=== PATIENT | female | born 1970 | race African-American/Black ===

== ENCOUNTER 2016-06-20 08:45 | Emergency (ER) | payer OTHER ==
[2016-06-20 08:50] VITALS: BMI 28.3
[2016-06-20] MEDS ORDERED: ASPIRIN 81 MG CHEWABLE TABLETS PO ONE (09:43)
--- NOTE | 2016-06-20 09:43 | PDOC ---
*Physical Exam - Vital Signs Last Vital Signs Temp Pulse Resp BP Pulse Ox 98 F 66 18 108/72 98 06/20/16 08:46 06/20/16 09:40 06/20/16 09:40 06/20/16 09:40 06/20/16 09:40 - Physical Exam Comments: 06/20/16 09:43 Pt seen by the Advanced Practice Provider under my direct supervision Pt interviewed and examined Ancillary studies reviewed I agree with plan as outlined by the Advanced Practice Provider ED Treatment Course - LABORATORY CBC & Chemistry Diagram: 06/20/16 10:12 06/20/16 10:12 *DC/Admit/Observation/Transfer Diagnosis at time of Disposition: Chest pain, Shoulder pain, bilateral - Discharge Dispostion Disposition: HOME Condition at time of disposition: Improved - Referrals Referrals: Nahum Johnson MD [Primary Care Provider] - - Patient Instructions Printed Discharge Instructions: DI for Chest Pain, DI for Musculoskeletal Pain Additional Instructions: Take Motrin or Tylenol for discomfort and follow-up with your PCP as needed. If your symptoms return or worsen you may return to the ED at any given time.
[2016-06-20] MEDS ORDERED: morphine CARPU-JECT 2 MG/1 ML DISP.SYRIN IVPUSH ONE ×2 (09:46→13:30)
[2016-06-20] MEDS ORDERED: morphine CARPU-JECT 2 MG/1 ML DISP.SYRIN ONE ×2 (09:52→13:37)
[2016-06-20] MEDS ORDERED: ASPIRIN 81 MG CHEWABLE TABLETS ONE (09:52)
--- NOTE | 2016-06-20 09:56 | PDOC ---
History of Present Illness - General Chief Complaint: Pain Stated Complaint: CHEST PAIN Time Seen by Provider: 06/20/16 09:23 History Source: Patient Exam Limitations: No Limitations - History of Present Illness Initial Comments: 06/20/16 09:37 46-year-old female presents to the ED with worsening midsternal chest pressure which she states began about 1 week ago and now radiates to bilateral shoulders , left neck and left arm. Patient states took Motrin twice over the past 2 days which seemed to alleviate her discomfort so took it again this morning with no relief and decided come to the ER. Patient also states mild shortness of breath with minimal exertion but denies any history of PE, CHF, cough, or fever. Patient does state smokes cigarette a daily basis but denies history of DVT, recent travel or recent surgery. Patient does state history of recreational marijuana use and ex Cocaine user 5 years ago. Patient denies abdominal pain, lower extremity edema, orthopnea, palpitations, nausea, or mid back pain. Presenting Symptoms: Chest Pain, Short of Breath Timing/Duration: reports: constant, getting worse Severity/Quality: reports: moderate, pressure, tightness Location: reports: substernal, central Chest Pain Radiation: reports: arms (left), neck, shoulders Prior Chest Pain/Cardiac Workup: reports: No prior chest pain Nitro Today/Relief: Yes: no nitro taken today Aspirin Received prior to arrival (Core Measure): Yes: no aspirin today, 81 mg x 2 (given in the ED) Associated Symptoms: Yes: Chest Pain/pressure, Shortness of Breath Past History - Past Medical History Allergies/Adverse Reactions: Allergies Allergy/AdvReac Type Severity Reaction Status Date / Time No Known Allergies Allergy Verified 08/16/14 15:55 Home Medications: Ambulatory Orders No Home Medications 0 dose .ROUTE UTDICT 12/02/13 Psychiatric Problems: Yes (ANXIETY) Other medical history: DENIES - Immunization History Immunization Up to Date: Yes - Psycho/Social/Smoking Cessation Hx Anxiety: Yes Suicidal Ideation: No Smoking History: Current every day smoker Have you smoked in the past 12 months: No Number of Cigarettes Smoked Daily: 10 Information on smoking cessation initiated: No Hx Alcohol Use: No Drug/Substance Use Hx: Yes Substance Use Type: Alcohol, Cocaine (5 years ago), Marijuana Patient Lives Alone: No Lives with/in: spouse/SO Review of Systems - Review of Systems Able to Perform ROS?: Yes Constitutional: No: Symptoms Reported HEENTM: No: Symptoms Reported Respiratory: Yes: Shortness of Breath Cardiac (ROS): Yes: Chest Pain, Chest Tightness ABD/GI: No: Symptoms Reported : No: Symptoms Reported Musculoskeletal: No: Symptoms Reported Integumentary: No: Symptoms Reported Neurological: No: Symptoms reported Psychiatric: Yes: Anxiety (as per history but denied when questioned about psychiatric disorders) Hematologic/Lymphatic: No: Symptoms Reported *Physical Exam - Vital Signs Last Vital Signs Temp Pulse Resp BP Pulse Ox 98.4 F 66 18 95/78 98 06/20/16 14:29 06/20/16 14:29 06/20/16 14:29 06/20/16 14:29 06/20/16 14:29 - Physical Exam General Appearance: Yes: Nourished, Appropriately Dressed. No: Apparent Distress HEENT: positive: EOMI, JACKIE. negative: Pale Conjunctivae Neck: positive: Supple Respiratory/Chest: positive: Lungs Clear, Normal Breath Sounds. negative: Respiratory Distress, Accessory Muscle Use Cardiovascular: positive: Regular Rhythm, Regular Rate. negative: Murmur Gastrointestinal/Abdominal: positive: Soft, Tenderness (mild epigastric) Extremity: positive: Normal Capillary Refill. negative: Pedal Edema Integumentary: positive: Normal Color, Warm, Moist Neurologic: positive: Motor Strength 5/5. negative: Normal Mood/Affect (mildly anxious ) Heart Score/ECG Review #2 ECG reviewed & interpreted by me at: 15:08 General ECG Interpretation: Sinus Rhythm (rate 57. No acute changes.) - ECG Intrepretation Rhythm: Regular Rhythm (rate 66. no acute findngs. No ST elevation. unchanged from August 2014) ED Treatment Course - LABORATORY CBC & Chemistry Diagram: 06/20/16 10:12 06/20/16 10:12 - ADDITIONAL ORDERS Additional order review: Laboratory Results 06/20/16 06/20/16 06/20/16 14:00 10:12 10:12 INR D-Dimer Sodium Potassium Chloride Carbon Dioxide Anion Gap BUN Creatinine Creat Clearance w eGFR Random Glucose Calcium Magnesium Total Bilirubin AST ALT Alkaline Phosphatase Creatine Kinase 88 Troponin I < 0.02 B-Natriuretic Peptide Cancelled Total Protein Albumin Serum , Qual Negative 06/20/16 06/20/16 06/20/16 10:12 10:12 10:12 INR 0.93 D-Dimer 215 Sodium 141 Potassium 3.9 Chloride 109 H Carbon Dioxide 25 Anion Gap 7 L BUN 9 Creatinine 0.6 Creat Clearance w eGFR > 60 Random Glucose 79 Calcium 8.4 L Magnesium 2.4 Total Bilirubin 0.5 D AST 15 D ALT 33 D Alkaline Phosphatase 72 Creatine Kinase 94 Troponin I < 0.02 B-Natriuretic Peptide 69.65 Total Protein 7.1 Albumin 3.5 Serum , Qual 06/20/16 10:12 RBC 4.34 MCV 93.1 MCHC 34.2 RDW 13.6 MPV 9.1 D Neutrophils % 48.5 Lymphocytes % 39.8 Monocytes % 10.3 H Eosinophils % 1.0 Basophils % 0.4 - RADIOLOGY Radiology Studies Ordered: Category Date Time Status CHEST X-RAY PORTABLE* [RAD] Stat Radiology 06/20/16 11:31 Completed - Medications Given in the ED: ED Medications Discontinued Medications Generic Name Dose Route Start Last Admin Trade Name Freq PRN Reason Stop Dose Admin Aspirin 162 mg 06/20/16 09:43 06/20/16 10:05 Asa - PO 06/20/16 09:44 162 mg ONCE ONE Administration Sodium Chloride 1,000 mls @ 1,000 mls/hr 06/20/16 10:01 06/20/16 10:06 Normal Saline - IV 06/20/16 11:00 1,000 mls/hr ASDIR STA Administration Morphine Sulfate 2 mg 06/20/16 09:46 06/20/16 10:06 Morphine Injection - IVPUSH 06/20/16 09:47 2 mg ONCE ONE Administration Morphine Sulfate 2 mg 06/20/16 13:30 06/20/16 13:40 Morphine Injection - IVPUSH 06/20/16 13:31 2 mg ONCE ONE Administration Medical Decision Making - Medical Decision Making 06/20/16 10:03 Patient with substernal chest tightness that radiates to her shoulders and neck. Patient also complaining of shortness of breath for the past week. Patient states pain is worsened with movement but the shortness of breath continues. Patient with history of cocaine use 5 years ago and smokes presently. Patient does also have history of anxiety. Patient concerned for ACS, PE, dissection, anxiety, and pneumonia. Patient will be ordered for cardiac workup including d-dimer, BNP. Will consider imaging once d-dimer is resulted. Blood pressure on bilateral arms with noted pulse pressure difference. Patient ordered for IVF. 06/20/16 12:06 Laboratory Tests 06/20/16 06/20/16 06/20/16 10:12 10:12 10:12 WBC 4.3 D Hgb 13.8 Hct 40.4 Plt Count 216 Lymphocytes % 39.8 INR 0.93 D-Dimer Sodium 141 Potassium 3.9 Chloride 109 H Carbon Dioxide 25 Anion Gap 7 L BUN 9 Creatinine 0.6 Random Glucose 79 Calcium 8.4 L Magnesium 2.4 AST 15 D ALT 33 D Creatine Kinase 94 Troponin I < 0.02 B-Natriuretic Peptide 69.65 Serum , Qual 06/20/16 06/20/16 06/20/16 10:12 10:12 14:00 WBC Hgb Hct Plt Count Lymphocytes % INR D-Dimer 215 Sodium Potassium Chloride Carbon Dioxide Anion Gap BUN Creatinine Random Glucose Calcium Magnesium AST ALT Creatine Kinase 88 Troponin I < 0.02 B-Natriuretic Peptide Serum , Qual Negative States pain has been resolved with the morphine. Patient understands she will have a second troponin done at 2. Patient otherwise comfortable 06/20/16 15:08 Laboratory Tests 06/20/16 14:00 Creatine Kinase 88 Troponin I < 0.02 patient was given a second dose of morphine secondary to right shoulder pain. Vital signs stable. Second EKG negative. Patient will be discharged home to follow-up with her PCP 06/20/16 15:18 *DC/Admit/Observation/Transfer Diagnosis at time of Disposition: Bilateral shoulder pain Chest pain Qualifiers: Chest pain type: unspecified Qualified Code(s): R07.9 - Chest pain, unspecified - Discharge Dispostion Disposition: HOME Condition at time of disposition: Improved - Referrals Referrals: Nahum Johnson MD [Primary Care Provider] - - Patient Instructions Printed Discharge Instructions: DI for Chest Pain, DI for Musculoskeletal Pain Additional Instructions: Take Motrin or Tylenol for discomfort and follow-up with your PCP as needed. If your symptoms return or worsen you may return to the ED at any given time.
[2016-06-20] MEDS ORDERED: SODIUM CHLORIDE 1,000 ML IV STA (10:01)
[2016-06-20 10:32] LABS: BASOPHIL 0.4 % (0-2.0); MCH 31.8 pg (25.7-33.7); MCHC 34.2 g/dl (32.0-36.0); MEAN CELL VOLUME 93.1 fl (80-96); MEAN PLT VOLUME 9.1 fl (7.5-11.1); NEUTROPHILS 48.5 % (42.8-82.8); PLATELET COUNT 216 K/MM3 (134-434); RDW 13.6 % (11.6-15.6); WHITE BLOOD COUNT 4.3 K/mm3 (4.0-10.0)
[2016-06-20 10:53] LABS: INR 0.93 (0.82-1.09); PROTHROMBIN TIME (PATIENT) 10.2 SEC (9.98-11.88)
[2016-06-20 10:54] LABS: ALBUMIN 3.5 g/dl (3.4-5.0); ANION GAP 7 (8-16); BILIRUBIN,TOTAL 0.5 mg/dL (0.2-1.0); CALCIUM 8.4 mg/dL (8.5-10.1); CO2 25 mmol/L (21-32); CREATININE 0.6 mg/dL (0.55-1.02); GLUCOSE,RANDOM 79 mg/dL (74-106); MAGNESIUM 2.4 mg/dL (1.8-2.4); SGOT/AST 15 U/L (15-37); SGPT/ALT 33 U/L (12-78); TOT PROT 7.1 g/dl (6.4-8.2)
[2016-06-20 10:57] LABS: ALK PHOS 72 U/L (45-117); TROPONIN I < 0.02 ng/ml (0.00-0.05)
--- NOTE | 2016-06-20 12:26 | EKG ---
Test Reason : Blood Pressure : / mmHG Vent. Rate : 066 BPM Atrial Rate : 066 BPM P-R Int : 164 ms QRS Dur : 076 ms QT Int : 412 ms P-R-T Axes : 065 032 020 degrees QTc Int : 431 ms NORMAL SINUS RHYTHM CANNOT RULE OUT ANTERIOR INFARCT , AGE UNDETERMINED ABNORMAL ECG WHEN COMPARED WITH ECG OF 16-AUG-2014 16:42, NO SIGNIFICANT CHANGE WAS FOUND Confirmed by SONIDO CARRASCO MD ([id number]) on 06/20/2016 12:26:01 PM Referred By: Confirmed By:SONIDO CARRASCO MD
[2016-06-20 14:30] VITALS: TEMP 98.4
[2016-06-20 14:49] LABS: TROPONIN I < 0.02 ng/ml (0.00-0.05)
[2016-06-20 15:23] VITALS: BP 102/68; PULSE 64
--- NOTE | 2016-06-21 12:46 | EKG ---
Test Reason : Blood Pressure : / mmHG Vent. Rate : 057 BPM Atrial Rate : 057 BPM P-R Int : 186 ms QRS Dur : 074 ms QT Int : 424 ms P-R-T Axes : 061 035 023 degrees QTc Int : 412 ms SINUS BRADYCARDIA CANNOT RULE OUT ANTERIOR INFARCT (CITED ON OR BEFORE 20-JUN-2016) NONSPECIFIC ST ABNORMALITY Confirmed by YOSELIN MARTINEZ MD ([id number]) on 06/21/2016 12:45:50 PM Referred By: Confirmed By:YOSELIN MARTINEZ MD
== END 2016-06-20 15:29 | disposition home or self-care (01) ==
LOC: JER 08:45
PROC: 3E0337Z Introduction of Electrolytic and Water Balance Substance into Peripheral Vein, Percutaneous Approach (ICD-10-PCS; principal; 2016-06-20)
PROC: 3E033NZ Introduction of Analgesics, Hypnotics, Sedatives into Peripheral Vein, Percutaneous Approach (ICD-10-PCS; 2016-06-20)
DX: R07.9 Chest pain, unspecified (principal)
CPT/HCPCS: 36415; 71010-TC; 80053; 82550; 83735; 83880; 84484; 84703; 85025; 85379; 85610; 93005; 93010; 99284-25

== ENCOUNTER 2016-08-05 12:26 | Emergency (ER) | payer OTHER ==
[2016-08-05 12:36] VITALS: BP 116/77; PULSE 61; TEMP 98.3; BMI 28.1
--- NOTE | 2016-08-05 13:27 | PDOC ---
History of Present Illness - General Chief Complaint: Abscess Boil Stated Complaint: LUMP ON BACK Time Seen by Provider: 08/05/16 13:04 History Source: Patient Exam Limitations: No Limitations - History of Present Illness Initial Comments: 08/05/16 13:33 CHIEF COMPLAINT: Lump left sided back HISTORY OF PRESENT ILLNESS: Patient is a 46-year-old female with a history of anxiety here today planing of a lump to the left side of her mid back getting larger over the last month. Patient reports that area is nontender. Patient denies any fever or any redness of area. Patient denies any other symptoms. Timing/Duration: getting worse Severity: mild (left mid back lump getting worse over one month) Associated Symptoms: reports: other (lump mid left side of back ) Past History - Past Medical History Allergies/Adverse Reactions: Allergies Allergy/AdvReac Type Severity Reaction Status Date / Time No Known Allergies Allergy Verified 08/05/16 12:33 Home Medications: Ambulatory Orders No Home Medications 0 dose .ROUTE UTDICT 12/02/13 Psychiatric Problems: Yes (ANXIETY) - Immunization History Immunization Up to Date: Yes - Psycho/Social/Smoking Cessation Hx Anxiety: Yes Suicidal Ideation: No Smoking History: Current every day smoker Have you smoked in the past 12 months: Yes Number of Cigarettes Smoked Daily: 5 Information on smoking cessation initiated: Yes Hx Alcohol Use: No Drug/Substance Use Hx: No Substance Use Type: Alcohol, Cocaine, Marijuana Review of Systems - Review of Systems Able to Perform ROS?: Yes Constitutional: No: Symptoms Reported HEENTM: No: Symptoms Reported Respiratory: No: Symptoms reported Cardiac (ROS): No: Symptoms Reported ABD/GI: No: Symptoms Reported : No: Symptoms Reported Musculoskeletal: No: Symptoms Reported Integumentary: Yes: Other (lump left mid back getting worse over last month non tender) Neurological: No: Symptoms reported *Physical Exam - Vital Signs Last Vital Signs Temp Pulse Resp BP Pulse Ox 98.3 F 61 18 116/77 100 08/05/16 12:33 08/05/16 12:33 08/05/16 12:33 08/05/16 12:33 08/05/16 12:33 - Physical Exam General Appearance: Yes: Appropriately Dressed Respiratory/Chest: positive: Lungs Clear, Normal Breath Sounds. negative: Chest Tender, Respiratory Distress Cardiovascular: positive: Regular Rhythm, Regular Rate, S1, S2 Musculoskeletal: negative: CVA Tenderness, CVA Tenderness (R), CVA Tenderness (L ), Decreased Range of Motion, Vertebral Tenderness Integumentary: positive: Other (mobile non firm lump left mid back approx approx 3 cm x 2 cm ) Neurologic: positive: Alert, Normal Response, Responsive Medical Decision Making - Medical Decision Making 08/05/16 13:24 08/05/16 13:35 Patient is a 46-year-old female with a history of anxiety here today planing of a lump to the left side of her mid back getting larger over the last month. Patient reports that area is nontender. Patient denies any fever or any redness of area. Patient denies any other symptoms. lump left side mid back most likely a lipoma PLAN: refer to surgeon *DC/Admit/Observation/Transfer Diagnosis at time of Disposition: Lump of skin of back - Discharge Dispostion Disposition: HOME Condition at time of disposition: Stable - Referrals Referrals: Nahum Johnson MD [Primary Care Provider] - Jag Ocampo MD [Staff Physician] - - Patient Instructions Additional Instructions: Follow-up with surgeon as soon as possible Return to emergency room if symptoms worsen or new symptoms develop Patient voiced understanding of discharge instructions and all questions were answered
== END 2016-08-05 13:34 | disposition home or self-care (01) ==
LOC: JERFT 12:26
DX: D17.1 Benign lipomatous neoplasm of skin and subcutaneous tissue of trunk (principal); F41.9 Anxiety disorder, unspecified; F17.210 Nicotine dependence, cigarettes, uncomplicated
CPT/HCPCS: 99281-25

== ENCOUNTER 2017-02-11 12:21 | Emergency (ER) | payer OTHER ==
[2017-02-11 12:36] VITALS: BP 121/79; PULSE 67; TEMP 98.2; BMI 28.7
[2017-02-11] MEDS ORDERED: SODIUM CHLORIDE 500 ML IV STA (16:57)
--- NOTE | 2017-02-11 17:03 | PDOC ---
History of Present Illness - History of Present Illness Initial Comments: 02/11/17 16:57 46 yo F with h/o HTN, anxiety, fibromyalgia who presents with chest pain. Pt. endorses worsening chest pain over past week. She states that she has been experiencing unrelenting, sharp left sided chest pain associated with SOB, nausea without vomiting, GI upset, numbness/tinglign of fingertips, weakness of extremities, globus sensation, dysphagia, insomnia. Recently experienced odynophagia within the past 2 days. Denies LOC, urinary complaints. Been evaluated by Rheumatology, Gastroenterology, cardiology, neurology, ophthalmology recently for undifferentiated complaints. Scheduled to have endosocpy (02/19). H/o recurrent ED visits within the past year for anxiety related symtpoms. Recent ACS/[place] ( 06/20) workup was negative. Holter monitor in [facility] revealed multiple PVC's with rare atrial ectopy. Endorses recreational marijuanna use daily and 1/2 ppd tobacco use. States that she is a social drinker with occasional alcoholic/wine intake on weekends 1-2 glasses. 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 <Johnie Ramirez - Last Filed: 02/11/17 19:05> <Leida Sugsg - Last Filed: 02/11/17 21:15> - General Chief Complaint: Chest Pain Stated Complaint: CHEST PAIN, JAW LOCKING Time Seen by Provider: 02/11/17 16:37 Past History - Past Medical History Psychiatric Problems: Yes (ANXIETY) Other medical history: FIBROMYALGIA, CARPAL TURNEL BOTH WRISTS - Immunization History Immunization Up to Date: Yes - Psycho/Social/Smoking Cessation Hx Anxiety: Yes Suicidal Ideation: No Smoking History: Former smoker Have you smoked in the past 12 months: Yes Number of Cigarettes Smoked Daily: 5 If you are a former smoker, when did you quit?: 01/2017 Information on smoking cessation initiated: Yes 'Breaking Loose' booklet given: 02/11/17 Hx Alcohol Use: No Drug/Substance Use Hx: No Substance Use Type: None <Johnie Ramirez - Last Filed: 02/11/17 19:05> <Leida Suggs - Last Filed: 02/11/17 21:15> - Past Medical History Allergies/Adverse Reactions: Allergies Allergy/AdvReac Type Severity Reaction Status Date / Time No Known Allergies Allergy Verified 02/11/17 12:36 Home Medications: Ambulatory Orders No Home Medications 0 dose .ROUTE UTDICT 12/02/13 Review of Systems - Review of Systems Comments:: 02/11/17 17:26 <Johnei Ramirez - Last Filed: 02/11/17 19:05> *Physical Exam - Vital Signs Last Vital Signs Temp Pulse Resp BP Pulse Ox 98.2 F 67 19 121/79 100 02/11/17 12:34 02/11/17 12:34 02/11/17 12:34 02/11/17 12:34 02/11/17 12:34 - Physical Exam Comments: 02/11/17 17:35 GENERAL: Awake, alert, and fully oriented, in no acute distress HEAD: No signs of trauma, normocephalic, atraumatic EYES: PERRLA, EOMI, sclera anicteric, conjunctiva clear ENT: Auricles normal inspection, hearing grossly normal, nares patent, oropharynx clear without exudates. Moist mucosa NECK: Normal ROM, supple, no lymphadenopathy, JVD, or masses LUNGS: No distress, speaks full sentences, clear to auscultation bilaterally HEART: Regular rate and rhythm, normal S1 and S2, no murmurs, rubs or gallops, peripheral pulses normal and equal bilaterally. EXTREMITIES: Normal inspection, Normal range of motion, no edema. No clubbing or cyanosis. NEUROLOGICAL: Cranial nerves II through XII grossly intact. Normal speech, normal gait, no focal sensorimotor deficits. Absent dysmetria on finger to nose. Normal LIBAN SKIN: Warm, Dry, normal turgor, no rashes or lesions noted. <Johnie Ramirez - Last Filed: 02/11/17 19:05> - Vital Signs Last Vital Signs Temp Pulse Resp BP Pulse Ox 98.2 F 67 19 121/79 100 02/11/17 12:34 02/11/17 12:34 02/11/17 12:34 02/11/17 12:34 02/11/17 12:34 <Leida Suggs - Last Filed: 02/11/17 21:15> ED Treatment Course - LABORATORY CBC & Chemistry Diagram: 02/11/17 17:12 02/11/17 17:02 <Johnie Ramirez - Last Filed: 02/11/17 19:05> - LABORATORY CBC & Chemistry Diagram: 02/11/17 17:12 02/11/17 17:02 - ADDITIONAL ORDERS Additional order review: Laboratory Results 02/11/17 02/11/17 02/11/17 17:12 17:12 17:02 INR 0.96 Sodium 140 Potassium 3.8 Chloride 104 Carbon Dioxide 28 Anion Gap 8 BUN 12 D Creatinine 0.6 Creat Clearance w eGFR > 60 Random Glucose 82 Calcium 9.7 Total Bilirubin 0.3 D AST 13 L ALT 22 D Alkaline Phosphatase 79 Creatine Kinase 151 Creatine Kinase Index 0.7 CK-MB (CK-2) 1.172 Troponin I < 0.02 Total Protein 8.6 H D Albumin 4.2 Urine HCG, Qual 02/11/17 16:41 INR Sodium Potassium Chloride Carbon Dioxide Anion Gap BUN Creatinine Creat Clearance w eGFR Random Glucose Calcium Total Bilirubin AST ALT Alkaline Phosphatase Creatine Kinase Creatine Kinase Index CK-MB (CK-2) Troponin I Total Protein Albumin Urine HCG, Qual Negative 02/11/17 17:12 RBC 4.47 MCV 90.8 MCHC 34.4 RDW 13.3 MPV 8.9 Neutrophils % 43.5 Lymphocytes % 41.4 H Monocytes % 11.8 H Eosinophils % 2.6 D Basophils % 0.7 - Medications Given in the ED: ED Medications Discontinued Medications Generic Name Dose Route Start Last Admin Trade Name Freq PRN Reason Stop Dose Admin Sodium Chloride 500 mls @ 500 mls/hr 02/11/17 16:57 02/11/17 16:59 Normal Saline - IV 02/11/17 17:56 500 mls/hr ASDIR STA Administration Ketorolac Tromethamine 30 mg 02/11/17 18:37 02/11/17 18:57 Toradol Injection - IM 02/11/17 18:38 30 mg ONCE ONE Administration <Leida Suggs - Last Filed: 02/11/17 21:15> Medical Decision Making - Medical Decision Making 02/11/17 17:34 46 yo F with h/o HTN, anxiety, fibromyalgia who presents with chest pain. Pt. endorses worsening chest pain over past week. Complains of unrelenting, sharp left sided chest pain associated with SOB, nausea without vomiting, GI upset, numbness/tinglign of fingertips, weakness of extremities, globus sensation, dysphagia, insomnia.Recent multispecialty evaluation with by Rheumatology, Gastroenterology, cardiology, neurology, ophthalmology recently for undifferentiated complaints. Scheduled to have endosocpy (02/19). H/o recurrent ED visits within the past year for anxiety related symtpoms. Recent ACS/[place] ( ) workup was negative. Holter monitor in [facility] revealed multiple PVC's with rare atrial ectopy. Endorses recreational marijuanna use daily and 1/2 ppd tobacco use. States that she is a social drinker with occasional alcoholic/wine intake on weekends 1-2 glasses. 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 Physical exam is unremarkable. DDx: anxiety related disorder ED Course: CBC, CMP, Cardic Profile EKG: Sinus Bradycardia TSH 02/11/17 17:46 CBC, CMP: Unremarkable Trop: Neg 1 L NS 02/11/17 19:02 Patient stable and ready for discharge 02/11/17 19:05 CXR: Unremarkable <Johnie Ramirez - Last Filed: 02/11/17 19:05> *DC/Admit/Observation/Transfer - Discharge Dispostion Admit: No <Johnie Ramirez - Last Filed: 02/11/17 19:05> <Leida Suggs - Last Filed: 02/11/17 21:15> Diagnosis at time of Disposition: Anxiety disorder, unspecified Qualifiers: Anxiety disorder type: unspecified anxiety disorder Qualified Code(s): F41.9 - Anxiety disorder, unspecified - Discharge Dispostion Disposition: HOME Condition at time of disposition: Stable - Referrals Referrals: Nahum Johnson MD [Primary Care Provider] - - Patient Instructions Printed Discharge Instructions: DI for Atypical Chest Pain Additional Instructions: Please return to ED if you experience worsening symptoms or severe chest pain.
[2017-02-11 17:16] LABS: BASOPHIL 0.7 % (0-2.0); EOSINOPHIL 2.6 % (0-4.5); MCH 31.3 pg (25.7-33.7); MCHC 34.4 g/dl (32.0-36.0); MEAN CELL VOLUME 90.8 fl (80-96); MEAN PLT VOLUME 8.9 fl (7.5-11.1); NEUTROPHILS 43.5 % (42.8-82.8); PLATELET COUNT 220 K/MM3 (134-434); RDW 13.3 % (11.6-15.6); WHITE BLOOD COUNT 4.5 K/mm3 (4.0-10.0)
[2017-02-11 17:30] LABS: INR 0.96 (0.82-1.09); PROTHROMBIN TIME (PATIENT) 10.5 SEC (9.98-11.88)
[2017-02-11 17:43] LABS: ALBUMIN 4.2 g/dl (3.4-5.0); ALK PHOS 79 U/L (45-117); ANION GAP 8 (8-16); BILIRUBIN,TOTAL 0.3 mg/dL (0.2-1.0); CALCIUM 9.7 mg/dL (8.5-10.1); CO2 28 mmol/L (21-32); CREATININE 0.6 mg/dL (0.55-1.02); GLUCOSE,RANDOM 82 mg/dL (74-106); SGOT/AST 13 U/L (15-37); SGPT/ALT 22 U/L (12-78); TOT PROT 8.6 g/dl (6.4-8.2)
[2017-02-11 17:44] LABS: CPK 151 IU/L (26-192); TROPONIN I < 0.02 ng/ml (0.00-0.05)
[2017-02-11] MEDS ORDERED: KETOROLAC TROMETHAMINE 30 MG/1 ML VIAL IM ONE (18:37)
[2017-02-11] MEDS ORDERED: KETOROLAC TROMETHAMINE 30 MG/1 ML VIAL ONE (19:03)
--- NOTE | 2017-02-11 19:31 | PDOC ---
Attending Attestation - Resident Resident Name: Johnie Ramirez - ED Attending Attestation I have performed the following: I have examined & evaluated the patient, The case was reviewed & discussed with the resident, I agree w/resident's findings & plan, Exceptions are as noted - HPI HPI: 02/11/17 22:14 46 yo female p/w chest pain . Denies nausea,vomiting, dyspnea, fever, chills or productive cough -had recent ECHO that was unremarkable 02/12/17 01:18 - Physicial Exam PE: 02/12/17 01:19 wnwd 46 yo female HEENT wnl Lungs cta b/l cvs [id number] abd no rebound,no guarding ext from,no deformity skin no abscess,no rahses neuro axox3,ambulatory,no gross focal neuro deficits - Medical Decision Making 02/12/17 01:20 negative cars w/u .Pt to followup with PCP
--- NOTE | 2017-02-12 14:47 | EKG ---
Test Reason : Blood Pressure : / mmHG Vent. Rate : 057 BPM Atrial Rate : 057 BPM P-R Int : 160 ms QRS Dur : 076 ms QT Int : 410 ms P-R-T Axes : 055 019 007 degrees QTc Int : 399 ms SINUS BRADYCARDIA OTHERWISE NORMAL ECG WHEN COMPARED WITH ECG OF 20-JUN-2016 14:49, NO SIGNIFICANT CHANGE WAS FOUND Confirmed by CAROLIN FONTENOT MD ([id number]) on 02/12/2017 2:47:29 PM Referred By: Confirmed By:CAROLIN FONTENOT MD
== END 2017-02-11 19:57 | disposition home or self-care (01) ==
LOC: JER 12:21
PROC: 3E0233Z Introduction of Anti-inflammatory into Muscle, Percutaneous Approach (ICD-10-PCS; principal; 2017-02-11)
PROC: 3E0337Z Introduction of Electrolytic and Water Balance Substance into Peripheral Vein, Percutaneous Approach (ICD-10-PCS; 2017-02-11)
DX: F41.9 Anxiety disorder, unspecified (principal); M79.7 Fibromyalgia; I10 Essential (primary) hypertension; Z87.891 Personal history of nicotine dependence
CPT/HCPCS: 36415; 71010-TC; 80053; 82553; 84484; 84703; 85025; 85610; 93005; 93010; 99281-25

== ENCOUNTER 2017-02-19 10:36 | Day surgery (SDC) | payer OTHER ==
[2017-02-14 10:33] VITALS: BMI 29.0
[2017-02-19] MEDS ORDERED: PROPOFOL 20 ML ONE (10:49)
[2017-02-19 11:02] VITALS: TEMP 97.7
[2017-02-19 12:58] VITALS: BP 125/75; PULSE 71
--- NOTE | 2017-02-20 16:15 | PATH ---
Surgical Pathology Report Patient Name: MARKELL TSANG [facility]. Rec. #: [id number] /Age/Gender: 1970 (Age: 46) / F Account: [id number] Location: [facility] SUR[facility]ICAL Taken: 02/19/2017 Received: 02/19/2017 Reported: 02/20/2017 Physicians: Odilia Coyle M.D. Specimen(s) Received A: SECOND PORTION DUODENUM B: BX ANTRUM C: BX GE JUNCTION D: BX MID ESOPHAGUS Clinical History GERD, dysphagia Duodenitis, antral ulcer Final Diagnosis A. SECOND PORTION OF DUODENUM, BIOPSY: MODERATE CHRONIC DUODENITIS. B. ANTRUM, BIOPSY: MODERATE CHRONIC GASTRITIS. IMMUNOSTAIN IS NEGATIVE FOR H. PYLORI ORGANISMS. C. GE JUNCTION, BIOPSY: GASTRIC CARDIAC-TYPE MUCOSA SHOWING MODERATE CHRONIC INFLAMMATION. NEGATIVE FOR INTESTINAL METAPLASIA. D. MID ESOPHAGUS, BIOPSY: ESOPHAGEAL (SQUAMOUS) MUCOSA WITH NO PATHOLOGIC FINDINGS. NO COLUMNAR EPITHELIUM/INTESTINAL METAPLASIA IS IDENTIFIED. Electronically Signed Jill Ramírez M.D. Gross Description A. Received in formalin, labeled "second portion of duodenum" are 3 gresham, irregular portions of soft tissue ranging from 0.2-0.4 cm. in greatest dimension. The specimens are submitted in toto in one cassette. B. Received in formalin, labeled "antrum" are 2 gresham, irregular portions of soft tissue measuring 0.2 and 0.3 cm. in greatest dimension. The specimens are submitted in toto in one cassette. C. Received in formalin, labeled "GE junction" is a gresham, irregular portion of soft tissue measuring 0.3 cm. in greatest dimension. The specimen is submitted in toto in one cassette. D. Received in formalin, labeled "mid esophagus" is a gresham, irregular portion of soft tissue measuring 0.3 cm. in greatest dimension. The specimen is submitted in toto in one cassette. 02/19/201702/19/2017
== END 2017-02-19 13:00 | disposition home or self-care (01) ==
LOC: FASU-ENDO 10:36
PROVIDERS: ATTEND Internal Medicine Gastroenterology
PROC: 0DB28ZX Excision of Middle Esophagus, Via Natural or Artificial Opening Endoscopic, Diagnostic (ICD-10-PCS; 2017-02-19)
PROC: 0DB48ZX Excision of Esophagogastric Junction, Via Natural or Artificial Opening Endoscopic, Diagnostic (ICD-10-PCS; 2017-02-19)
PROC: 0DB98ZX Excision of Duodenum, Via Natural or Artificial Opening Endoscopic, Diagnostic (ICD-10-PCS; principal; 2017-02-19 12:04)
PROC: 0DB68ZX Excision of Stomach, Via Natural or Artificial Opening Endoscopic, Diagnostic (ICD-10-PCS; 2017-02-19 12:04)
DX: K29.80 Duodenitis without bleeding (principal); K29.50 Unspecified chronic gastritis without bleeding; K25.9 Gastric ulcer, unspecified as acute or chronic, without hemorrhage or perforation
CPT/HCPCS: 84703; 88305-TC; 88342-TC

== ENCOUNTER 2020-07-19 10:46 | Day surgery (SDC) | payer OTHER ==
[2020-07-19] MEDS ORDERED: PROPOFOL 20 ML ONE (11:16)
[2020-07-19 11:22] VITALS: TEMP 98.2; BMI 25.7
[2020-07-19 12:45] VITALS: BP 108/66; PULSE 66
== END 2020-07-19 12:50 | disposition home or self-care (01) ==
LOC: FASU 10:46
PROVIDERS: ATTEND Internal Medicine Gastroenterology
PROC: 0DB78ZX Excision of Stomach, Pylorus, Via Natural or Artificial Opening Endoscopic, Diagnostic (ICD-10-PCS; 2020-07-19)
PROC: 0DB48ZX Excision of Esophagogastric Junction, Via Natural or Artificial Opening Endoscopic, Diagnostic (ICD-10-PCS; 2020-07-19)
PROC: 0DB98ZX Excision of Duodenum, Via Natural or Artificial Opening Endoscopic, Diagnostic (ICD-10-PCS; principal; 2020-07-19 12:02)
DX: K29.50 Unspecified chronic gastritis without bleeding (principal); K31.89 Other diseases of stomach and duodenum; Z87.19 Personal history of other diseases of the digestive system
CPT/HCPCS: 84703; 88305-TC; 88342-TC

== ENCOUNTER 2022-10-05 20:40 | Emergency (ER) | payer OTHER ==
[2022-10-05 21:00] VITALS: BP 97/77; PULSE 109; RESP 20; TEMP 98.4; BMI 26.2
[2022-10-05] MEDS ORDERED: PANTOPRAZOLE SODIUM 40 MG VIAL IVPUSH ONE (21:26)
[2022-10-05 21:52] LABS: BASO % 0.5 % (0-2.0); EOS % 0.3 % (0-4.5); HEMATOCRIT 43.8 % (32.4-45.2); HEMOGLOBIN 15.5 GM/dL (10.7-15.3); LYMPH % 14.9 % (8-40); MCH 31.9 pg (25.7-33.7); MCHC 35.3 g/dl (32.0-36.0); MEAN CELL VOLUME 90.4 fl (80-96); MEAN PLT VOLUME 8.8 fl (7.5-11.1); MONO % 3.7 % (3.8-10.2); NEUT % 80.6 % (42.8-82.8); PLATELET COUNT 257 10^3/uL (134-434); RBC 4.85 M/mm3 (3.60-5.2); RDW 13.7 % (11.6-15.6)
[2022-10-05 22:03] LABS: INR 1.08 (0.83-1.09); PROTHROMBIN TIME (PATIENT) 12.5 SEC (9.7-13.0)
[2022-10-05 22:05] LABS: ACTIVATED PTT 27.7 SECONDS (25.2-36.5)
[2022-10-05 22:13] LABS: ALBUMIN 3.5 g/dl (3.4-5.0); CALCIUM 9.3 mg/dL (8.5-10.1)
[2022-10-05 22:14] LABS: BLOOD UREA NITROGEN 9.6 mg/dL (7-18)
[2022-10-05] MEDS ORDERED: PANTOPRAZOLE SODIUM 40 MG/100 ML BAG IVPB ONE (22:14)
[2022-10-05 22:16] LABS: CREATININE 0.8 mg/dL (0.55-1.3)
[2022-10-05 22:18] LABS: BILIRUBIN,TOTAL 0.9 mg/dL (0.2-1); TOT PROT 8.2 g/dl (6.4-8.2)
[2022-10-05] MEDS ORDERED: ACETAMINOPHEN 500 MG TABLET (FP) PO ONE (22:24)
[2022-10-05] MEDS ORDERED: ACETAMINOPHEN 325 MG TABLET (FP) ONE (22:34)
== END 2022-10-05 22:41 | disposition home or self-care (01) ==
LOC: JER 20:40
PROC: 3E033GC Introduction of Other Therapeutic Substance into Peripheral Vein, Percutaneous Approach (ICD-10-PCS; principal; 2022-10-05)
DX: K62.5 Hemorrhage of anus and rectum (principal)
CPT/HCPCS: 36415; 80053; 82272; 85025; 85610; 85730; 86900; 99284-25